=== PATIENT | male | born 1960 | race Caucasian/White ===

== ENCOUNTER 2021-11-14 13:37 | Emergency (ER) | payer SELFPAY ==
[~2021-11-14] VITALS: Ht 170.2 cm; Wt 72.0 kg
[2021-11-14 13:47] VITALS: BP 147/57
[2021-11-14] MEDS ORDERED: ONDANSETRON 4MG ODT PO STA (13:51)
== END 2021-11-14 18:58 | disposition left against medical advice (07) ==
LOC: ER 13:37
DX: R10.11 Right upper quadrant pain (principal); K80.80 Other cholelithiasis without obstruction
CPT/HCPCS: 76705; 82962; 93005; 99284